=== PATIENT | female | born 1990 | race Caucasian/White ===

== ENCOUNTER 2019-07-09 18:30 | Emergency (ER) | payer OTHER ==
[~2019-07-09] VITALS: Ht 152.4 cm; Wt 66.7 kg
[~2019-07-09 18:30] MED LIST: CEFTIN250 MG PO; COLACE100 MG PO
[2019-07-10] MEDS ORDERED: KEFLEX500 MG PO (03:13)
== END 2019-07-10 04:16 | disposition home or self-care (01) ==
LOC: ER 18:30
DX: O23.42 Unspecified infection of urinary tract in pregnancy, second trimester (principal); O26.892 Other specified pregnancy related conditions, second trimester; R10.2 Pelvic and perineal pain; Z34.02 Encounter for supervision of normal first pregnancy, second trimester

== ENCOUNTER 2019-10-27 17:07 | Outpatient (CLI) | payer OTHER ==
[~2019-10-27 17:07] MED LIST changes: +KEFLEX500 MG PO
[2019-10-27] MEDS ORDERED: PRENATAL CAPLE1 EAC1 PO (18:22)
[2019-10-27] MEDS ORDERED: ADULT LOW DOSE81 M1 PO (18:22)
[2019-10-27] MEDS ORDERED: IRON325 MG PO (18:23)
[2019-10-28] MEDS ORDERED: KEFLEX500 MG PO (14:07)
== END 2019-10-28 15:30 | disposition home or self-care (01) ==
LOC: OBS/DEL 17:07
DX: O60.03 Preterm labor without delivery, third trimester (principal); O23.43 Unspecified infection of urinary tract in pregnancy, third trimester

== ENCOUNTER 2019-11-18 21:37 | Inpatient (IN) | payer OTHER ==
[~2019-11-18] VITALS: Ht 152.4 cm; Wt 74.4 kg
[~2019-11-18 21:37] MED LIST changes: +ADULT LOW DOSE81 M1 PO; +IRON325 MG PO; +PRENATAL CAPLE1 EAC1 PO
[2019-11-21] MEDS ORDERED: COLACE100 MG PO (14:54)
[2019-11-21] MEDS ORDERED: IBU800 MG PO (14:54)
[2019-11-21] MEDS ORDERED: SIMETHICONE125 M1 PO (14:56)
== END 2019-11-21 18:15 | disposition home or self-care (01) | DRG 785 ==
LOC: LDR 21:37 → OB/GYN 21:37 → O/R 11-19 18:43 → OB/GYN 11-19 21:27
PROVIDERS: ADMIT Specialist; ATTEND Specialist
PROC: 4A1HXCZ Monitoring of Products of Conception, Cardiac Rate, External Approach (ICD-10-PCS; 2019-11-18)
PROC: 0UL70ZZ Occlusion of Bilateral Fallopian Tubes, Open Approach (ICD-10-PCS; 2019-11-19)
PROC: 10D00Z1 Extraction of Products of Conception, Low, Open Approach (ICD-10-PCS; principal; 2019-11-19 17:00)
DX: O14.04 Mild to moderate pre-eclampsia, complicating childbirth (principal); Z3A.37 37 weeks gestation of pregnancy; Z37.0 Single live birth; Z30.2 Encounter for sterilization